=== PATIENT | male | born 1990 | race Caucasian/White ===

== ENCOUNTER 2018-05-14 15:42 | Emergency (ER) | payer OTHER ==
--- NOTE | 2018-05-14 15:46 | PDOC ---
Rapid Medical Evaluation Medical Evaluation: 05/14/18 15:44 I have performed a brief in-person evaluation of this patient. The patient presents with a chief complaint of:right ankle 15 days ago Pertinent physical exam findings: ttp lateral malleolus, no swelling or deformity I have ordered the following:xray right ankle The patient will proceed to the ED for further evaluation. 05/14/18 15:45
[2018-05-14 15:48] VITALS: BP 113/78; PULSE 94; TEMP 98.2; BMI 48.2
--- NOTE | 2018-05-14 17:23 | PDOC ---
History of Present Illness - General Chief Complaint: Injury Stated Complaint: INJURY Time Seen by Provider: 05/14/18 17:02 History Source: Patient Exam Limitations: Clinical Condition - History of Present Illness Initial Comments: 05/14/18 17:25 Patient with no significant past medication present with complaint of right ankle pain status post twisting right ankle the curb side 2 weeks ago. Patient reported increased pain with ambulation to lateral side of right ankle. Patient did not take anything for pain. Patient has not seen anybody about ankle pain. Patient denies any other symptoms Timing/Duration: other (2 weeks) Past History - Past Medical History Home Medications: Ambulatory Orders Ibuprofen 800 mg PO Q8H PRN #20 tablet 05/14/18 - Suicide/Smoking/Psychosocial Hx Smoking History: Never smoked Have you smoked in the past 12 months: No Information on smoking cessation initiated: No Hx Alcohol Use: No Drug/Substance Use Hx: No Review of Systems - Review of Systems Able to Perform ROS?: Yes Is the patient limited [place]ian proficient: No Constitutional: No: Weakness HEENTM: No: Symptoms Reported Respiratory: No: Symptoms reported Cardiac (ROS): No: Symptoms Reported ABD/GI: No: Symptoms Reported Musculoskeletal: Yes: Joint Pain (right ankle), Muscle Pain (right ankle). No: Muscle Weakness Neurological: No: Numbness, Tingling All Other Systems: Reviewed and Negative *Physical Exam - Vital Signs Last Vital Signs Temp Pulse Resp BP Pulse Ox 98.2 F 94 H 20 113/78 100 05/14/18 15:45 05/14/18 15:45 05/14/18 15:45 05/14/18 15:45 05/14/18 15:45 - Physical Exam Comments: 05/14/18 17:26 GENERAL: Well developed, well nourished. Awake and alert. No acute distress. CARDIOVASCULAR: Regular rate and rhythm. No murmurs, rubs, or gallops. PULMONARY: No evidence of respiratory distress. Lungs clear to auscultation bilaterally. No wheezing, rales or rhonchi. ABDOMINAL: Soft. Non-tender. Non-distended. No rebound or guarding. No organomegaly. Normoactive bowel sounds MUSCULOSKELETAL : Mild tenderness to palpation over lateral malleolus of right ankle. No swelling to ankle. Negative anterior-posterior drawer test of right ankle .No bony deformities SKIN: Warm and dry. Normal capillary refill. NEUROLOGICAL: Alert, awake, appropriate. No motor deficits in the lower extremities. Gait is normal without ataxia. PSYCHIATRIC: Cooperative. Good eye contact. Appropriate mood and affect. General Appearance: Yes: Nourished, Appropriately Dressed. No: Apparent Distress Moderate Sedation - Procedure Monitoring Vital Signs: Procedure Monitoring Vital Signs Temperature 98.2 F 05/14/18 15:45 Pulse Rate 94 H 05/14/18 15:45 Respiratory Rate 20 05/14/18 15:45 Blood Pressure 113/78 05/14/18 15:45 O2 Sat by Pulse Oximetry (%) 100 05/14/18 15:45 Medical Decision Making - Medical Decision Making 05/14/18 17:28 Patient with no significant past medication present with complaint of 2 weeks history of right ankle pain status post twisting her ankle 2 weeks ago. Patient reported increased pain with ambulation. Exam significant for mild tenderness over lateral malleolus of right ankle. No swelling or effusion to ankle or foot. X-ray shows no acute fracture. Symptoms likely ankle sprain. Patient placed on aircast Ankle support and Martin bandage. Patient discharged home on ibuprofen with orthopedist follow-up. *DC/Admit/Observation/Transfer Diagnosis at time of Disposition: Right ankle sprain Qualifiers: Encounter type: initial encounter Involved ligament of ankle: unspecified ligament Qualified Code(s): S93.401A - Sprain of unspecified ligament of right ankle, initial encounter - Discharge Dispostion Disposition: HOME Condition at time of disposition: Stable Decision to Admit order: No - Prescriptions Prescriptions: Ibuprofen 800 mg PO Q8H PRN #20 tablet PRN Reason: pain - Referrals Referrals: Van Juarez MD [Staff Physician] - - Patient Instructions Printed Discharge Instructions: DI for Ankle Sprain - Post Discharge Activity
== END 2018-05-14 17:25 | disposition home or self-care (01) ==
LOC: JERFT 15:42
PROC: 2W3QX1Z Immobilization of Right Lower Leg using Splint (ICD-10-PCS; principal; 2018-05-14)
DX: S93.401A Sprain of unspecified ligament of right ankle, initial encounter (principal); X50.1XXA Overexertion from prolonged static or awkward postures, initial encounter; Y93.89 Activity, other specified; Y92.480 Sidewalk as the place of occurrence of the external cause; Y99.8 Other external cause status
CPT/HCPCS: 73610-TC-RT-FY; 73630-TC-RT-FY; 99281-25